=== PATIENT | female | born 1950 | race Caucasian/White ===

== ENCOUNTER 2017-12-01 15:00 | Outpatient (CLI) | payer MEDICARE ==
[2012-11-03 12:34] VITALS: BMI 25.6
[~2017-12-01 15:00] MED LIST: ASPIRIN325 MG PO; LISINOPRIL2.5 MG PO; NO HOME MEDS; PRAVACHOL40 MG PO
== END 2017-12-01 15:30 | disposition left against medical advice (07) ==
LOC: D.MAMMO 15:00
DX: Z12.31 Encounter for screening mammogram for malignant neoplasm of breast (principal)